=== PATIENT | male | born 1940 | race Caucasian/White ===

== ENCOUNTER → 2018-01-17 | Outpatient (CLI) | payer MEDICARE ==
[~2018-01-17] MED LIST: ASPI81EC PO; GLYB2.5 PO; LISI5 PO; METF500 PO; SIMV10 PO
== END | disposition home or self-care (01) ==
LOC: LAB EV 17:17 → LAB SHORT 17:17
DX: N30.01 Acute cystitis with hematuria (principal)
CPT/HCPCS: 87077; 87086; 87186

== ENCOUNTER → 2022-10-28 | Outpatient (CLI) | payer MEDICARE ==
[~2022-10-28] MED LIST changes: +ASCO500; +CHOL10002; +ELIQUIS5 MG; +ENTRESTO 24 MG1 EACH; +Hair, Skin & N1 EACH; +SPIR25
[2022-10-28 13:57] LABS: Source, Urine Clean Catch
[2022-10-28 15:36] LABS: Appearance, Urine Hazy (Clear); Bilirubin, Urine Neg (Neg); Blood, Urine 3+ (Neg); Color, Urine Yellow (P-Yellow); Glucose Qualitative, Urine 3+ (Neg); Ketones, Urine Neg (Neg); Leukocyte Esterase, Urine 3+ (Neg); Nitrite, Urine Neg (Neg); Protein, Urine 1+ (Neg); Specific Gravity, Urine 1.015 (1.003-1.022); Urobilinogen, Urine NORM (Normal)
[2022-10-28 15:46] LABS: White Blood Cells, Urine TNTC /hpf (0-5)
[2022-10-28 15:47] LABS: Bacteria Few /hpf; Squamous Epithelial Cells Not Seen /hpf (Few)
== END | disposition home or self-care (01) ==
LOC: LAB SHORT 13:56 → LAB 13:56
PROVIDERS: Internal Medicine
DX: R35.1 Nocturia (principal)
CPT/HCPCS: 81001; 87077; 87086; 87186